=== PATIENT | male | born 1940 | race Caucasian/White ===

== ENCOUNTER → 2017-07-16 | Outpatient (CLI) | payer MEDICARE, BC ==
[2017-07-16 17:36] LABS: EOS # 0.1 (0.04-0.40); EOS % 0.7 % (0.0-4.0); HEMATOCRIT 44.2 % (42.0-52.0); HEMOGLOBIN 14.3 g/dL (13.5-18.0); LYMPH# 2.2 (1.50-4.00); MEAN CELL VOLUME 88 fl (78-100); MEAN CORPUSCULAR HEMOGLOBIN 29 pg (27-31); MEAN CORPUSCULAR HGB CONC 32 g/dL (33-37); NEU # 8.2 (1.40-6.50); PLATELET COUNT 195 K/mm3 (130-400); RED BLOOD COUNT 5.01 M/mm3 (4.20-5.60); RED CELL DISTRIBUTION WIDTH 13.8 % (11.5-14.5); WHITE BLOOD COUNT 11.5 K/mm3 (4.8-10.8)
[2017-07-16 17:50] LABS: MEAN PLATELET VOLUME 12.2 fl (7.4-10.4)
[2017-07-16 18:01] LABS: ALBUMIN 4.1 g/dL (3.5-5.0); BUN/CREATININE RATIO 12.2 (6.0-26.0); CALCIUM 9.2 mg/dL (8.4-10.2); TOTAL BILIRUBIN 0.6 mg/dL (0.2-1.3); TOTAL PROTEIN 7.4 g/dL (6.3-8.2)
[2017-07-16 18:39] LABS: URINE APPEARANCE CLEAR; URINE BILIRUBIN NEGATIVE (NEGATIVE); URINE BLOOD NEGATIVE (NEGATIVE); URINE COLOR YELLOW; URINE GLUCOSE NEGATIVE (NEGATIVE); URINE KETONE NEGATIVE (NEGATIVE); URINE LEUKOCYTE ESTERASE NEGATIVE (NEGATIVE); URINE NITRATE NEGATIVE (NEGATIVE); URINE PROTEIN(semi-quant) NEGATIVE (NEGATIVE); URINE UROBILINOGEN NORMAL (NORMAL)
== END ==
LOC: LAB 17:13
PROVIDERS: Nurse Practitioner Family
DX: R19.7 Diarrhea, unspecified (principal)

== ENCOUNTER → 2017-07-26 | Outpatient (CLI) | payer MEDICARE, BC | LOC: LAB 10:41 | PROVIDERS: Internal Medicine | DX: I25.10 Atherosclerotic heart disease of native coronary artery without angina pectoris (principal); R73.02 Impaired glucose tolerance (oral); Z12.5 Encounter for screening for malignant neoplasm of prostate; R20.2 Paresthesia of skin; Z12.11 Encounter for screening for malignant neoplasm of colon ==

== ENCOUNTER → 2017-08-01 | Outpatient (CLI) | payer MEDICARE, BC | LOC: LAB 11:16 | DX: Z12.11 Encounter for screening for malignant neoplasm of colon (principal); R20.2 Paresthesia of skin; N52.9 Male erectile dysfunction, unspecified; Z88.0 Allergy status to penicillin ==

== ENCOUNTER → 2020-06-10 | Outpatient (CLI) | payer MEDICARE, BC | LOC: RAD 10:32 | DX: M47.816 Spondylosis without myelopathy or radiculopathy, lumbar region (principal) ==

== ENCOUNTER → 2020-06-30 | Outpatient (CLI) | payer MEDICARE, BC ==
[2020-06-30 12:48] LABS: EOS # 0.2 (0.04-0.40); EOS % 3.6 % (0.0-4.0); HEMOGLOBIN 14.7 g/dL (13.5-18.0); LYMPH# 1.8 (1.50-4.00); MEAN CELL VOLUME 88 fl (78-100); MEAN CORPUSCULAR HEMOGLOBIN 29 pg (27-31); MEAN CORPUSCULAR HGB CONC 33 g/dL (33-37); MEAN PLATELET VOLUME 11.4 fl (7.4-10.4); MONO # 0.5 (0.20-0.80); PLATELET COUNT 174 K/mm3 (130-400); RED BLOOD COUNT 5.13 M/mm3 (4.20-5.60); RED CELL DISTRIBUTION WIDTH 14.2 % (11.5-14.5); WHITE BLOOD COUNT 5.6 K/mm3 (4.8-10.8)
[2020-06-30 12:57] LABS: ALBUMIN 4.3 g/dL (3.4-4.8)
[2020-06-30 12:58] LABS: POTASSIUM 4.1 mmol/L (3.5-5.1)
[2020-06-30 12:59] LABS: CALCIUM 9.2 mg/dL (8.3-10.5)
[2020-06-30 13:00] LABS: TOTAL PROTEIN 7.2 g/dL (6.2-8.1)
[2020-06-30 13:02] LABS: TOTAL BILIRUBIN 0.5 mg/dL (0.2-1.2)
== END ==
LOC: LAB 12:29
PROVIDERS: Internal Medicine
DX: Z12.5 Encounter for screening for malignant neoplasm of prostate (principal); J43.9 Emphysema, unspecified

== ENCOUNTER → 2022-09-20 | Outpatient (CLI) | payer MEDICARE, BC ==
[2022-09-20 10:00] LABS: BASO # 0.02 K/mm3 (0.02-0.10); EOS # 0.12 K/mm3 (0.04-0.40); EOS % 2.4 % (0.0-4.0); HEMOGLOBIN 14.9 g/dL (13.5-18.0); LYMPH# 2.05 K/mm3 (1.50-4.00); MEAN CELL VOLUME 88 fl (78-100); MEAN CORPUSCULAR HEMOGLOBIN 29 pg (27-31); MEAN CORPUSCULAR HGB CONC 33 g/dL (33-37); MEAN PLATELET VOLUME 11.5 fl (7.4-10.4); MONO # 0.39 K/mm3 (0.20-0.80); PLATELET COUNT 140 K/mm3 (130-400); RED BLOOD COUNT 5.11 M/mm3 (4.20-5.60); RED CELL DISTRIBUTION WIDTH 13.1 % (11.5-14.5); WHITE BLOOD COUNT 5.1 K/mm3 (4.8-10.8)
[2022-09-20 10:30] LABS: ALBUMIN 4.2 g/dL (3.4-4.8); POTASSIUM 4.1 mmol/L (3.5-5.1); SODIUM 141 mmol/L (136-145)
[2022-09-20 10:31] LABS: CALCIUM 9.7 mg/dL (8.3-10.5)
[2022-09-20 10:33] LABS: GLUCOSE 84 mg/dL (75-110); TOTAL PROTEIN 7.1 g/dL (6.2-8.1)
[2022-09-20 10:34] LABS: CARBON DIOXIDE 22 mmol/L (23-31)
[2022-09-20 10:35] LABS: TOTAL BILIRUBIN 0.6 mg/dL (0.2-1.2)
[2022-09-20 10:38] LABS: AST-SGOT 18 U/L (5-34)
[2022-09-20 10:40] LABS: ALT/SGPT 14 U/L (0-55)
[2022-09-20 11:39] LABS: ERYTHROCYTE SEDIMENTATION RATE 6 mm/hr (0-20)
[2022-09-20 11:53] LABS: D-DIMER 2.48 mg/L FEU (0.15-0.50)
== END ==
LOC: LAB 09:29
PROVIDERS: Internal Medicine
DX: Z12.5 Encounter for screening for malignant neoplasm of prostate (principal); K90.9 Intestinal malabsorption, unspecified; E78.2 Mixed hyperlipidemia; R06.00 Dyspnea, unspecified
CPT/HCPCS: Q9967